=== PATIENT | male | born 2000 | race Caucasian/White ===

== ENCOUNTER 2022-01-06 18:18 | Emergency (ER) | payer MEDICAID ==
[~2022-01-06] VITALS: Ht 172.7 cm; Wt 107.5 kg
--- NOTE | 2022-01-06 18:43 | NUR ---
name called, no answer in lobby or outside
[2022-01-06 18:55] VITALS: BP 141/75
--- NOTE | 2022-01-06 19:05 | NUR ---
21 y/o male, c/o feeling lightheaded, fatigue for 1 week. pt states he was at work and fainted for 30 seconds. pt states he has been having sharp body pains that "come in and out". pt is c/o bump on left knee and thinks he may has pieces of fiberglass from work in his knee. denies nausea, vomiting, diarrhea. skin is pink/warm/dry. a&o x4 with even and steady gait. lungs clear bl, heart rate even and regular. pt denies any fever, cp, sob, or cough at this time. pt states pain is 7/10 at this time. ermd made aware of pt. pmh: denies nka med: denies
[2022-01-06 20:23] LABS: BASOPHILS % (AUTO) 0.3 % (0.0-2.0); EOSINOPHILS % (AUTO) 0.2 % (0.0-4.0); HEMATOCRIT 43.5 % (36-52); HEMOGLOBIN 14.5 g/dL (12.0-18.0); LYMPHOCYTES % (AUTO) 28.1 % (20.5-51.1); MEAN CORPUSCULAR HEMOGLOBIN 26 pg (27-31); MEAN CORPUSCULAR HGB CONC 33 g/dL (33-37); MEAN CORPUSCULAR VOLUME 78.5 fL (80-94); MONOCYTES # (AUTO) 0.5 K/uL (0.8-1.0); MONOCYTES % (AUTO) 4.8 % (1.7-9.3); NEUTROPHILS # (AUTO) 7.2 K/uL (1.8-7.7); NEUTROPHILS % (AUTO) 66.6 % (42.2-75.2); PLATELET COUNT (AUTO) 302 K/uL (140-450); RED BLOOD CELL COUNT(AUTO) 5.54 MIL/uL (4.20-6.10); RED CELL DISTRIBUTION WIDTH 13.5 % (11.6-13.7); WHITE BLOOD COUNT (AUTO) 10.8 K/uL (4.8-10.8)
[2022-01-06 20:39] LABS: ANION GAP 14.8 (8-16); CARBON DIOXIDE 26.6 mmol/L (21-32); CREATININE 0.8 mg/dL (0.6-1.3); POTASSIUM 3.4 mmol/L (3.5-5.1)
[2022-01-06] MEDS ORDERED: CEPH-588 PO (20:59)
[2022-01-06] MEDS ORDERED: IBUP-2213 PO (20:59)
[2022-01-06 21:36] VITALS: BP 135/89
--- NOTE | 2022-01-06 21:36 | NUR ---
Patient discharged with v/s stable. Written and verbal after care instructions given and explained. Patient alert, oriented and verbalized understanding of instructions. Ambulatory with steady gait. All questions addressed prior to discharge. ID band removed. Patient advised to follow up with PMD. Rx of KEFLEX IBUPROFEN given. Patient educated on indication of medication including possible reaction and side effects. Opportunity to ask questions provided and answered.
--- NOTE | 2022-01-06 21:37 | NUR ---
Chart checked and completed.
== END 2022-01-06 21:36 | disposition home or self-care (01) ==
LOC: MED 18:18
DX: R55 Syncope and collapse (principal); L03.116 Cellulitis of left lower limb; R03.0 Elevated blood-pressure reading, without diagnosis of hypertension; Z79.899 Other long term (current) drug therapy
CPT/HCPCS: 36415; 71045; 73560; 80048; 85025; 93005; 99285

== ENCOUNTER 2022-05-04 19:43 | Emergency (ER) | payer MEDICAID ==
[~2022-05-04] VITALS: Ht 172.7 cm; Wt 103.9 kg
[~2022-05-04 19:43] MED LIST: CEPH-588 PO; IBUP-2213 PO
[2022-05-04 20:04] VITALS: BP 139/72
--- NOTE | 2022-05-04 20:07 | NUR ---
TO LOBBY A/W BED AMBULATORY
[2022-05-04] MEDS ORDERED: ACET-8386 PO (22:19)
[2022-05-04] MEDS ORDERED: IBUP-2213 PO (22:19)
--- NOTE | 2022-05-04 22:33 | NUR ---
PATIENT SEEN AND ASSESSED BY SALAZAR RAJAN. NO NURSING INTERVENTIONS COMPLETED. Patient alert, oriented and verbalized understanding of instructions. Ambulatory with steady gait. All questions addressed prior to discharge. ID band removed. Patient advised to follow up with PMD. Rx of HYDROCODONE/ACETAMINOPHEN AND IBUPROFEN given. Patient educated on indication of medication including possible reaction and side effects. Opportunity to ask questions provided and answered.
== END 2022-05-04 22:33 | disposition home or self-care (01) ==
LOC: MED 19:43
DX: M25.561 Pain in right knee (principal)
CPT/HCPCS: 73562; 99283